=== PATIENT | female | born 1985 | race Caucasian/White ===

== ENCOUNTER 2021-09-25 19:50 | Emergency (ER) | payer MEDICAID, OTHER, SELFPAY | END 2021-09-25 21:06 | disposition home or self-care (01) | LOC: MADERS 19:50 | DX: F43.20 Adjustment disorder, unspecified (principal); Z85.41 Personal history of malignant neoplasm of cervix uteri; F17.210 Nicotine dependence, cigarettes, uncomplicated | CPT/HCPCS: 99283 ==